=== PATIENT | male | born 1995 | race Caucasian/White ===

== ENCOUNTER 2019-05-22 14:26 | Emergency (ER) | payer OTHER ==
[2019-05-22 14:46] VITALS: RESP 18; TEMP 97.9
--- NOTE | 2019-05-22 14:48 | ED ---
Anxiety HPI - General Chief Complaint: Anxiety Stated Complaint: Tremors Time Seen by Provider: 05/22/19 14:47 Source: patient Mode of arrival: ambulatory - History of Present Illness Initial Comments: Patient is a 23-year-old male with history of anxiety presenting to the emergency department with a chief complaint of anxiety. Patient reports that today he has noticed twitching movements whenever he is talking to people or hears any voices from the hallways. Patient states that he used to see a therapist but not anymore. Patient states that he is prescribed Prozac, clon idine and Concerta but has not taken a regular basis. Caregiver reports taking the Klonopin recently. Patient denies any any other medication to alleviate his symptoms. Patient denies intraoral alcohol use. Patient reports "slight suicidal thoughts" because he does not want to keep feeling like this but does not have any ideations. Denies any other concerns. - Related Data Allergies/Adverse Reactions: Allergies Allergy/AdvReac Type Severity Reaction Status Date / Time No Known Allergies Allergy Verified 05/22/19 14:46 Review of Systems ROS Statement: Those systems with pertinent positive or pertinent negative responses have been documented in the HPI. ROS Other: All systems not noted in ROS Statement are negative. Past Medical History Past Medical History: No Reported History History of Any Multi-Drug Resistant Organisms: None Reported Past Surgical History: Orthopedic Surgery, Tonsillectomy Additional Past Surgical History / Comment(s): finger Past Psychological History: Anxiety, Depression Smoking Status: Never smoker Past Alcohol Use History: None Reported Past Drug Use History: None Reported General Exam Limitations: no limitations General appearance: alert, in no apparent distress Head exam: Present: atraumatic, normocephalic, normal inspection Eye exam: Present: normal appearance, PERRL, EOMI Pupils: Present: normal accommodation ENT exam: Present: normal exam Neck exam: Present: normal inspection, full ROM Respiratory exam: Present: normal lung sounds bilaterally Cardiovascular Exam: Present: regular rate, normal rhythm, normal heart sounds Extremities exam: Present: normal inspection, full ROM Back exam: Present: normal inspection, full ROM Neurological exam: Present: alert, oriented X3 Psychiatric exam: Present: normal affect, normal mood Skin exam: Present: warm, dry, intact, normal color Course Vital Signs 05/22/19 05/22/19 14:42 16:26 Temperature 97.9 F Pulse Rate 61 80 Respiratory 18 18 Rate Blood Pressure 175/120 140/78 O2 Sat by Pulse 100 98 Oximetry Medical Decision Making - Medical Decision Making Patient is a 23-year-old male presenting to the emergency department with a chief complaint of exam. Patient has a history of anxiety and used to see a therapist but not anymore. Patient is on 3 different psychiatric medication although he does not take him as he should. On exam today patient is slightly jittery when talking on it. He has no other complaints. Patient was medically clear. The psychiatric nurse, Nicolette, spoke with the patient. Patient has an appointment set up to speak with a therapist. 60 plan discussed with patient. Patient will be discharged. Patient given 0.5 mg of Xanax. Patient reports she feels well and comfortable to go home. Strict return parameters were thoroughly discussed with patient was understanding and agreeable. Case discussed with physician. - Lab Data Lab Results 05/22/19 Range/Units 16:05 Urine Opiates Screen Not Detected (NotDetected) Ur Oxycodone Screen Not Detected (NotDetected) Urine Methadone Screen Not Detected (NotDetected) Ur Propoxyphene Screen Not Detected (NotDetected) Ur Barbiturates Screen Not Detected (NotDetected) U Tricyclic Antidepress Not Detected (NotDetected) Ur Phencyclidine Scrn Not Detected (NotDetected) Ur Amphetamines Screen Not Detected (NotDetected) U Methamphetamines Scrn Not Detected (NotDetected) U Benzodiazepines Scrn Not Detected (NotDetected) Urine Cocaine Screen Not Detected (NotDetected) U Marijuana (THC) Screen Not Detected (NotDetected) Disposition Clinical Impression: Acute anxiety Disposition: HOME SELF-CARE Condition: Stable Instructions (If sedation given, give patient instructions): Generalized Anxiety Disorder (ED) Additional Instructions: Please follow up with a therapist. Please return to emergency department if symptoms worsen. Is patient prescribed a controlled substance at d/c from ED?: No Referrals: Nonstaff,Physician [Primary Care Provider] - 1-2 days Time of Disposition: 16:21
[2019-05-22] MEDS ORDERED: ALPRAZolam 0.5 MG TAB PO STA (16:22)
[2019-05-22 16:28] VITALS: BP 140/78; PULSE 80
[2019-05-22 17:03] LABS: Amphetamine Screen,Urine Not Detected (NotDetected); Barbiturate Screen,Urine Not Detected (NotDetected); Benzodiazepines Screen,Urine Not Detected (NotDetected); Cocaine Screen,Urine Not Detected (NotDetected); Methadone Screen, Urine Not Detected (NotDetected); Opiate Screen,Urine Not Detected (NotDetected); Oxycodone Screen, Urine Not Detected (NotDetected); Phencyclidine Screen,Urine Not Detected (NotDetected); Tricyclic Antidepressant,Urine Not Detected (NotDetected); Urn Cannabinoid Scrn Not Detected (NotDetected)
== END 2019-05-22 16:26 | disposition home or self-care (01) ==
LOC: EC 14:26
DX: F41.9 Anxiety disorder, unspecified (principal)
CPT/HCPCS: 80306; 82075; 99283